=== PATIENT | male | born 1945 | race Caucasian/White ===

== ENCOUNTER 2021-05-26 22:03 | Emergency (ER) | payer OTHER ==
[~2021-05-26] VITALS: Ht 180.3 cm; Wt 85.3 kg
[2021-05-26] MEDS ORDERED: LISINOPRIL5 MG PO (22:13)
[2021-05-26] MEDS ORDERED: PRAVASTATIN SOD40 MG PO (22:13)
[2021-05-26] MEDS ORDERED: PROTONIX40 MG PO (22:13)
[2021-05-26] MEDS ORDERED: FINASTERIDE5 M1 PO (22:13)
[2021-05-26] MEDS ORDERED: POTASSIUM CITRA5 MEQ PO (22:14)
[2021-05-26] MEDS ORDERED: HYDR25T PO (22:15)
[2021-05-26 23:25] LABS: BASO % 0.3 % (0.0-1.0); EOS # 0.1 10*3/uL (0.0-0.4); EOS % 1.8 % (1.0-4.0); HEMATOCRIT 40.9 % (42.0-52.0); LYMPH # 1.6 10*3/uL (1.3-4.4); LYMPH % 25.3 % (27.0-41.0); MEAN CELL VOLUME 89.9 fl (80.0-94.0); MEAN CORPUSCULAR HGB 30.8 pg (27.0-31.0); MEAN CORPUSCULAR HGB CONC 34.2 g/dl (33.0-37.0); MEAN PLATELET VOLUME 10.6 fl (9.6-12.3); MONO # 0.6 10*3/uL (0.1-1.0); MONO % 10.4 % (3.0-9.0); NEUT # 3.8 10*3/uL (2.3-7.9); NEUT % 61.7 % (47.0-73.0); PLATELET COUNT AUTOMATED 133 10*3/uL (130-400); RED BLOOD COUNT 4.55 10*6/uL (4.50-5.90); RED CELL DISTRI WIDTH 13.5 % (0-14.5); WHITE BLOOD COUNT 6.1 10*3/uL (4.8-10.8)
[2021-05-26 23:41] LABS: ALBUMIN 3.8 gm/dl (3.1-4.5); ALKALINE PHOSPHATASE 75 U/L (45-117); BUN 23 mg/dl (7-24); CHLORIDE 106 mmol/L (98-107); CREATININE 0.99 mg/dL (0.70-1.30); POTASSIUM 3.5 mmol/L (3.5-5.1); SGOT/AST 13 IU/L (3-35); SGPT/ALT 33 U/L (12-78); SODIUM 139 mmol/L (136-145); TOTAL PROTEIN 7.2 gm/dL (6.4-8.2); TROPONIN I < 0.015 ng/ml (<0.045)
== END 2021-05-27 00:51 | disposition home or self-care (01) ==
LOC: ED 22:03
PROVIDERS: Internal Medicine
DX: R07.9 Chest pain, unspecified (principal); Z79.899 Other long term (current) drug therapy

== ENCOUNTER 2021-12-12 16:02 | Emergency (ER) | payer OTHER ==
[~2021-12-12 16:02] MED LIST: FINASTERIDE5 M1 PO; HYDR25T PO; LISINOPRIL5 MG PO; POTASSIUM CITRA5 MEQ PO; PRAVASTATIN SOD40 MG PO; PROTONIX40 MG PO
[2021-12-12 16:41] LABS: BILIRUBIN Negative (Negative); BLOOD 3+ (Negative); CLARITY Clear (Clear); COLOR Yellow (Yellow); GLUCOSE Negative (Negative); KETONE Negative (Negative); LEUKO ESTERASE Negative (Negative); NITRITE Negative (Negative); UROBILINOGEN 0.2 E.U./dl (0.0-1.0)
[2021-12-12 16:53] LABS: BACTERIA 2+; EPITHELIAL CELLS 0-2; RBC TNTC rbc/hpf (0-2); WBC 0-2 wbc/hpf (0-5)
[2021-12-12] MEDS ORDERED: FLOMAX0.4 MG PO (18:36)
[2021-12-12] MEDS ORDERED: ZOFRAN4 MG PO (18:36)
[2021-12-12] MEDS ORDERED: HYDROCODONE-AC1 EAC1 PO (18:36)
== END 2021-12-12 18:41 | disposition home or self-care (01) ==
LOC: ED 16:02
PROVIDERS: Student in an Organized Health Care Education/Training Program
DX: N21.0 Calculus in bladder (principal); N20.0 Calculus of kidney; Z87.442 Personal history of urinary calculi; Z79.899 Other long term (current) drug therapy